=== PATIENT | female | born 1950 | race Caucasian/White ===

== ENCOUNTER 2020-08-29 16:44 | Emergency (ER) | payer MEDICARE, SELFPAY ==
--- NOTE | ~2020-08-29 | XR_ITS ---
XR forearm LT 2V DATE: 08/29/2020 17:07 INDICATION: Dog bite. Open laceration of the anterior forearm TECHNIQUE: AP and lateral views COMPARISON: None FINDINGS: Soft tissue puncture wounds are evident at the mid aspect of the anterior left forearm. No radiopaque foreign body. No fracture or dislocation of the forearm. No periosteal reaction or bone destruction. IMPRESSION: Soft tissue puncture wounds of anterior mid forearm; no fracture or dislocation or radiop aque foreign body Reviewed, dictated and finalized at location A. IMPRESSION: Soft tissue puncture wounds of anterior mid forearm; no fracture or dislocation or radiopaque foreign body
[2020-08-29 16:44] VITALS: BP 159/108; PULSE 74; RESP 20; TEMP 36.8; O2SAT 99
--- NOTE | 2020-08-29 16:54 | ED.GENADULT ---
HPI - General Adult General Chief complaint: Wound/Laceration Stated complaint: DOGBITE Source: patient, family and EMS Mode of arrival: EMS Limitations: no limitations History of Present Illness HPI narrative: Patient is a 69-year-old female who presents with a left forearm laceration that occurred from a dog bite left mid forearm pain from where a dog bit her while walking on a trail the owners had the dog's leash and as she walked past was bit patient presents in no distress per EMS patient is unsure as to tetanus status patient on arrival in no distress denies any other complaints pain is a moderate aching pain with any activity or movement Related Data Allergies Allergy/AdvReac Type Severity Reaction Status Date / Time No Known Allergies Allergy Unknown Verified 08/29/20 16:51 Review of Systems Review of Systems: All systems reviewed & are unremarkable except as noted in HPI and below PMFSH Past Medical History Medical History (Updated 08/29/20 @ 16:56 by Jose Teresa PA-C) Obese Social History Social History (Updated 08/29/20 @ 16:55 by Jose Teresa PA-C) Smoking status: Never smoker Exam Narrative: Exam Narrative: GENERAL: Well-appearing, well-nourished, and in no acute distress. HEAD: Normocephalic, atraumatic. EYES: PERRLA and EOMI. ENT: Nares clear, no rhinorrhea or epistaxis. Mucous membranes moist. CHEST: Clear to auscultation. No respiratory distress. No wheezes rales or rhonchi HEART: Regular rate and rhythm. No murmur heard. Normal peripheral pulses. EXTREMITIES: Normal range of motion. No edema. 2-1/2 cm linear laceration left mid forearm that is gaping. SKIN: Warm, dry, no rash. NEURO: No focal deficits. Alert and oriented x3. Neurovascularly intact. Capillary refill less than 2 seconds PSYCH: Normal mood and affect. Course Course Emergency Course: Patient's wound repaired in the emergency department no high risk changes in the imaging neurovascularly intact will follow up with primary care for reevaluation given reasons to return tetanus updated Vital Signs Vital signs: Vital Signs Temperature 98.2 F 08/29/20 16:44 Pulse Rate 74 08/29/20 16:44 Respiratory Rate 20 08/29/20 16:44 Blood Pressure 159/108 H 08/29/20 16:44 Pulse Oximetry 99 03/20/21 16:44 Temperature 98.2 F 08/29/20 16:44 Pulse Rate 74 08/29/20 16:44 Respiratory Rate 20 08/29/20 16:44 Blood Pressure 159/108 H 08/29/20 16:44 Pulse Oximetry 99 08/29/20 16:44 Procedures Laceration Laceration 1: Date: 08/29/20 Time: 18:55 Site: upper extremity Side (If applicable): left Size (cm): 2.5 Description: linear Depth: simple, single layer Local Anesthetic: lidocaine 1% Pre-repair: wound explored, irrigated and irrigated extensively ====== Skin Level ====== Skin layer closed with: nylon Size (cm): 4-0 Number of sutures: 4 ====== Subcutaneous Layer ====== ====== Muscle Layer ====== ====== Tendon Layer ====== Dressing: Patient's wound was irrigated with pressure irrigation closed with 4-0 nylon left loosely approximated in case there is infection or swelling neurovascularly intact pre and post procedure will follow with primary care for further evaluation tetanus updated nonadhesive antibiotic ointment 4 x 4 and Coban placed post procedure Medical Decision Making MDM Narrative Medical decision making narrative: Patients injury or pain is consistent with musculoskeletal etiology. No signs of neurological or vascular compromise on exam. Compartments and tisues are soft without signs of compartment syndrome. Pain is felt appropriate for further evaluation on an outpatient basis. Vital Signs Vital Signs: Vital Signs Temperature 98.2 F 08/29/20 16:44 Pulse Rate 74 08/29/20 16:44 Respiratory Rate 20 08/29/20 16:44 Blood Pressure 159/108 H 08/29/20 16:44 Pulse Oximetry
[2020-08-29] MEDS: HYDROcodone/acetaminophen (*CRX) 5-325 MG TABLET 1 TAB PO (16:55)
[2020-08-29] MEDS: TETANUS,DIPHTHERIA,AC PERTUSSIS ADULT (0.5 ML) BOOSTRIX IM (19:06)
[2020-08-29 19:12] VITALS: BP 160/102; PULSE 88; RESP 20; O2SAT 99
== END 2020-08-29 19:14 | disposition home or self-care (01) ==
PROVIDERS: Emergency Provider Emergency Medicine
DX: S51.852A Open bite of left forearm, initial encounter (principal); Z23 Encounter for immunization; E66.9 Obesity, unspecified; W54.0XXA Bitten by dog, initial encounter
CPT/HCPCS: 12001; 73090; 90471; 90715; 99283; A9270

== ENCOUNTER 2021-08-17 14:28 | Emergency (ER) | payer MEDICARE, SELFPAY ==
--- NOTE | ~2021-08-17 | XR_ITS ---
EXAMINATION: XR chest 2V DATE: 08/17/2021 19:00 INDICATION: One week of weakness and dizziness TECHNIQUE: PA and lateral views of the chest were obtained. COMPARISON: Chest radiograph dated 03/09/2019 FINDINGS: Mild eventration along the diaphragm. No focal airspace opacities, pulmonary edema, pleural effusion or pneumothorax. The cardiomediastinal silhouette is normal. Approximately 1 cm calcific density proj ecting over the region of the right kidney which could represent a renal stone, gallstone or potentia lly ingested material within the colon. Chronic mild anterior wedging of a few mid and lower thoracic vertebral bodies. IMPRESSION: 1. No acute cardiopulmonary disease. Reviewed, dictated and finalized at location A. M SHOVEL OILER
--- NOTE | ~2021-08-17 | CT_ITS ---
EXAMINATION: CT brain wo con DATE: 08/17/2021 19:45 INDICATION: Abnormal gait due to one week of dizziness TECHNIQUE: Computed tomography (CT) of the head was performed without intravenous contrast. Sagittal and coronal reconstructions were performed. The mA was adjusted according to patient size. Iterative reconstruction technique was employed. The dose-length product was 605.33 mGy-cm. COMPARISON: None FINDINGS: Small old lacunar infarct in the right frontal lobe rahman radiata. No acute intracranial hemorrhage, acute infarction or abnormal extra axial fluid collection. Ventricles are normal and symmetric. No m ass/mass effect. The orbits, paranasal sinuses and mastoid air cells are normal. IMPRESSION: 1. 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 No acute intracranial process. Reviewed, dictated and finalized at location A. IER CHECKER IMPRESSION: 1. 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 No acute i ntracranial process.
[2021-08-17 15:06] VITALS: BP 141/93; PULSE 71; RESP 16; O2SAT 100
[2021-08-17 17:15] VITALS: BP 149/97; PULSE 75; RESP 18; TEMP 36.4; O2SAT 99
--- NOTE | 2021-08-17 18:45 | PC.NURSE ---
pt to room 4 with c/o some vertigo over past week. noting with certain positions and turning of her head. symptoms resolve with rest. this am woke with feeling of lighthead and notice her gait is off and she is veering to the right. denies any weakness on one side or the other. pt denies any pain.
--- NOTE | 2021-08-17 18:53 | ECG_ITS ---
Measurements Intervals [place] Rate: 56 P: 5 FL: 162 QRS: -14 QRSD: 93 T: 2 QT: 390 QTc: 377 Interpretive Statements SINUS BRADYCARDIA MINIMAL VOLTAGE CRITERIA FOR LVH, CONSIDER NORMAL VARIANT [MEETS CRITERIA IN ONE OF: R(aVL), S(V1), R(V5), R(V5/V6)+S(V1)] BORDERLINE ECG COMPARED TO ECG 03/09/2019 12:51:38 SINUS BRADYCARDIA NOW PRESENT Electronically Signed On 08-18-2021 13:08:04 AIRCRAFT MAINTENANCE TECHNICIAN by Dalton Graham M.D.
[2021-08-17 19:01] LABS: Basophils Percent Auto 0.5 % (0.2-1.2); Eosinophils Absolute Auto 0.1 K/mm3 (0-0.3); Hematocrit 45.7 % (37.0-47.0); Hemoglobin 14.5 g/dL (12.0-15.0); Immature Granulocyte Absolute 0.02 K/mm3 (0.00-0.031); Immature Granulocyte Percent A 0.3 % (0-0.5); Lymphocytes Absolute Auto 1.54 K/mm3 (0.9-3.2); Lymphocytes Percent Auto 25.4 % (18.3-44.2); Mean Corpuscular HGB Conc 31.7 g/dl (32-36); Mean Corpuscular Hemoglobin 28.8 pg (26-34); Mean Corpuscular Volume 90.7 fl (80-100); Mean Platelet Volume 10.9 fl (7.4-10.4); Monocytes Absolute Auto 0.4 K/mm3 (0.1-0.6); Monocytes Percent Auto 7.3 % (2.6-8.5); Neutrophils Absolute Auto 3.9 K/mm3 (1.3-6.7); Neutrophils Percent Auto 64.5 % (45.5-73.1); Platelet Count Result 297 k/mm3 (150-375); Red Blood Count 5.04 M/mm3 (4.2-5.4); White Blood Count 6.1 K/mm3 (4.5-10.0)
[2021-08-17 19:13] LABS: Alanine Aminotransferase 21 U/L (4-35); Albumin Level 4.6 g/dL (3.5-5.1); Alkaline Phosphatase 62 U/L (38-126); Anion Gap 8 mmol/L (8-16); Aspartate Amino Transferase 31 U/L (14-36); Bilirubin,Total 0.3 mg/dL (0.2-1.3); Blood Urea Nitrogen 18 mg/dL (7-17); Calcium 9.3 mg/dL (8.4-10.2); Carbon Dioxide 26 mmol/L (22-30); Chloride 105 mmol/L (98-107); Estimated CRCL calculation 47 ml/min; Estimated Glomerular Filt Rate 49; Glucose 110 mg/dL (65-110); Potassium 3.8 mmol/L (3.4-5.0); Sodium 139 mmol/L (137-145)
--- NOTE | 2021-08-17 19:51 | ED.DIZZY ---
HPI - Dizziness General Chief Complaint: Dizziness Stated Complaint: dizziness Time Seen by Provider: 08/17/21 19:00 Source: patient and RN notes reviewed Mode of arrival: ambulatory Limitations: no limitations History of Present Illness HPI Narrative: This is a 70 year old female with history of prediabetes, hyperlipidemia, and chronic kidney disease who presents for evaluation of dizziness. Patient states over past week she has intermittent episodes of dizziness and vertigo. Approximately 1 week ago she had an episode of room spinning when she rolled over in bed. This happened 2 mornings in a row but she was fine during most of the day. She also reports noticing vertigo when she rolled over at the gym. She states today she is not having spinning but she feels dizziness that may be positional and intermittent. She denies headache, diplopia, chest pain, sob, nausea, vomiting, numbness, focal weakness or tingling. She thinks her gait is off intermittently. Related Data Allergies Allergy/AdvReac Type Severity Reaction Status Date / Time No Known Allergies Allergy Unknown Verified 08/29/20 16:51 Review of Systems Review of Systems: All systems reviewed & are unremarkable except as noted in HPI and below PMFSH Past Medical History Medical History (Updated 08/18/21 @ 00:00 by Quang Maya) Anxiety Chronic kidney disease Hyperlipidemia Hypothyroidism Obese Social History Social History (Updated 08/29/20 @ 16:55 by Jose Teresa PA-C) Smoking status: Never smoker Gender identity (if verbalized by the patient): Female Exam Const: General: no acute distress and alert Orientation/consciousness: patient oriented x3 HENMT: Head: normocephalic and atraumatic Ears: TM's normal bilaterally General nose exam: Normal external nose present Face and sinus: normal facial exam, sinuses nontender and face symmetric Mouth: Yes Normal oral and palatal mucosa present, Yes lip normal, Yes oropharynx normal and Yes moist mucous membranes Eyes: Pupils: Equal, round and reactive pupils present EOM: EOMs intact bilaterally Chest: Chest palpation & inspection: normal inspection of the chest Resp: Effort & Inspection: normal respiratory effort and no retractions Auscultation: clear to auscultation bilaterally Cardio: Rate: regular rate Rhythm: regular rhythm Heart sounds: no murmurs GI: GI Palp: Yes Soft to palpation, No Tenderness to palpation present (GI) and No Guarding due to palpation present (GI) Auscultation: normal bowel sounds Neuro: General: patient oriented x3, moves all extremities, no meningeal signs, no focal motor deficits and CN's II-XI intact bilaterally Cranial nerves: Yes CN's II-XII intact bilaterally Cognition (Neuro): normal cognition Speech: normal speech Gait exam (Neuro): Normal gait present Motor exam (neuro): 5/5 motor strength present throughout Sensory Exam: normal sensation Coordination: [id number] test normal, [id number] test normal, tandem gait normal and does not sway with eyes open Course Reevaluation(s) Reevaluation #1: I reviewed with patient and family CT and labs. Patient had normal gait in ER She is stable for discharge for outpatient follow up with PCP Date: 08/17/21 Time: 21:11 Vital Signs Vital signs: Vital Signs Pulse Rate 71 08/17/21 15:06 Respiratory Rate 16 08/17/21 15:06 Blood Pressure 141/93 H 08/17/21 15:06 Pulse Oximetry 100 08/17/21 15:06 Temperature 97.6 F 08/17/21 17:15 Pulse Rate 71 08/17/21 20:28 Respiratory Rate 18 08/17/21 17:15 Blood Pressure 132/89 08/17/21 20:28 Pulse Oximetry 99 08/17/21 17:15 MDM - Dizziness Medical Records Attestation: I reviewed the patient's medical records. Lab Data Attestation: I reviewed the patient's lab results. Result diagrams: 08/17/21 18:55 08/17/21 18:55 Labs: Lab Results 08/17/21 08/17/21 08/17/21 Range/Units 18:55 18:
[2021-08-17 20:25] VITALS: BP 140/86; PULSE 62
[2021-08-17 20:26] VITALS: BP 140/85; PULSE 69
[2021-08-17 20:28] VITALS: BP 132/89; PULSE 71
[2021-08-17 21:02] LABS: Add Urine Microscopic? NO; Appearance Urine Clear (Clear); Bilirubin Urine Negative (Negative); Blood Urine Negative (Negative); Color Urine Yellow (Yellow); Glucose Urine UA Negative (Negative); Ketones Urine Negative (Negative); Leukocyte Esterase Ur Negative LEU/UL (Negative); Nitrate Urine Negative (Negative); Protein Urine Negative (Negative); Specific Grav Ur 1.019 (1.001-1.035); Urobilinogen Urine Negative mg/dL (<2.0)
== END 2021-08-17 21:26 | disposition home or self-care (01) ==
PROVIDERS: Emergency Medicine; Emergency Provider General Practice
DX: R42 Dizziness and giddiness (principal); N18.9 Chronic kidney disease, unspecified; R73.03 Prediabetes; E78.5 Hyperlipidemia, unspecified; E03.9 Hypothyroidism, unspecified; E66.9 Obesity, unspecified; Z68.34 Body mass index [BMI] 34.0-34.9, adult; R00.1 Bradycardia, unspecified
CPT/HCPCS: 36415; 70450; 71046; 80053; 81003; 85025; 93005; 99284

== ENCOUNTER 2023-08-17 09:09 | Outpatient (CLI) | payer MEDICARE, SELFPAY ==
[2023-08-17 19:15] LABS: Parathyroid Intact 33.9 pg/mL (7.5-53.5)
[2023-08-17 19:21] LABS: Alanine Aminotransferase 25 U/L (6-35); Albumin Level 4.3 g/dL (3.5-5.1); Alkaline Phosphatase 73 U/L (38-126); Anion Gap 8 mmol/L (8-16); Aspartate Amino Transferase 49 U/L (14-36); Bilirubin,Total 0.7 mg/dL (0.2-1.3); Blood Urea Nitrogen 15 mg/dL (7-17); Calcium 9.7 mg/dL (8.4-10.2); Carbon Dioxide 25 mmol/L (22-30); Chloride 107 mmol/L (98-107); Cholesterol 152 mg/dL (0-200); Estimated Glomerular Filt Rate 55; Glucose 108 mg/dL (65-110); HDL Direct 46 mg/dL; Potassium 3.4 mmol/L (3.4-5.0); Sodium 140 mmol/L (137-145); Triglycerides 110 mg/dL (<150)
[2023-08-17 19:32] LABS: LDL Cholesterol Direct 81 mg/dL
[2023-08-17 19:34] LABS: Eosinophils Absolute Auto 0.3 K/mm3 (0-0.3); Eosinophils Percent Auto 7.7 % (0-4.4); Hematocrit 45.1 % (37.0-47.0); Hemoglobin 14.4 g/dL (12.0-15.0); Immature Granulocyte Absolute 0.01 K/mm3 (0.00-0.031); Immature Granulocyte Percent A 0.2 % (0-0.5); Lymphocytes Absolute Auto 1.18 K/mm3 (0.9-3.2); Lymphocytes Percent Auto 29.1 % (18.3-44.2); Mean Corpuscular HGB Conc 31.9 g/dl (32-36); Mean Corpuscular Volume 87.6 fl (80-100); Monocytes Absolute Auto 0.3 K/mm3 (0.1-0.6); Monocytes Percent Auto 8.4 % (2.6-8.5); Neutrophils Absolute Auto 2.2 K/mm3 (1.3-6.7); Neutrophils Percent Auto 53.6 % (45.5-73.1); Platelet Count Result 268 k/mm3 (150-375); Red Blood Count 5.15 M/mm3 (4.2-5.4); Red Cell Distribution Width 13.3 % (11.5-14.5); White Blood Count 4.1 K/mm3 (4.5-10.0)
[2023-08-17 20:11] LABS: Thyroid Stimulating Hormone 0.311 uIU/mL (0.465-4.680); Total Triiodothyronine (T3) 1.05 NG/ML (0.97-1.69)
[2023-08-17 20:32] LABS: Free T4 Free Thyroxine 1.54 ng/mL (0.78-2.19)
== END 2023-08-17 09:10 | disposition home or self-care (01) ==
LOC: ANHGOSHLAB 09:10
PROVIDERS: PCP Emergency Medicine; Visit Provider Emergency Medicine
DX: E78.5 Hyperlipidemia, unspecified (principal); E03.9 Hypothyroidism, unspecified; N18.31 Chronic kidney disease, stage 3a
CPT/HCPCS: 36415; 80053; 80061; 82330; 83970; 84439; 84443; 84480; 85025

== ENCOUNTER 2023-09-25 09:28 | Outpatient (CLI) | payer MEDICARE, SELFPAY ==
--- NOTE | ~2023-09-25 | XR_ITS ---
Left Shoulder Technique: AP and axillary views were obtained. Clinical History: Pain Findings: No fracture or dislocation is seen. Osseous alignment is anatomic. Moderate AC joint degene rative change present. Glenohumeral joint intact. Soft tissues are unremarkable. Impression: Moderate AC joint degenerative change. Reviewed, dictated and finalized at location . Impression: Moderate AC joint degenerative change.
== END 2023-09-25 09:29 ==
PROVIDERS: PCP Emergency Medicine; Visit Provider Emergency Medicine
DX: M19.012 Primary osteoarthritis, left shoulder (principal)
CPT/HCPCS: 73030

== ENCOUNTER 2023-09-27 10:00 | Outpatient (RCR) | payer MEDICARE, SELFPAY ==
--- NOTE | 2023-07-19 09:56 | OPREHPOC ---
Outpatient Therapy Plan of Care This is a Multidisciplinary Plan of Care that may contain components documented by all disciplines (PT, OT, and ST.) PT Problem 1 PT Problem #1 Knowledge Deficit PT Goal 1 Goal 1. Patient will perform independent HEP Target Visit 4 PT Problem 2 PT Problem #2 Pain PT Goal 1 Goal 1. Patient able to reach into cabinets with shoulder pain no higher than 2/10 2. Patient able to navigate all stairs at her apartment with LE pain no higher than 1/10 Target Visit 8 PT Problem 3 PT Problem #3 Impaired Strength PT Goal 1 Goal 1. Improve hip abduction to 4+/5 bilateral for gait and stair navigation 2. Improve left shoulder to 4+/5 in all planes for reaching activities Target Visit 8
--- NOTE | 2023-07-19 10:42 | PTOPPROG ---
Assessment and note entered by Yanelis Pickett DPT Evaluation Information Assessment Status Evaluation Subjective Information Pt reports radiating low back pain and left shoulder pain. LBP has been about 6-8 months. Pain starts in her R buttock and radiates down the side of her right LE. Highest LE pain 5/10 and lowest 0/10. Denies n/t. Pain increases with navigating stairs or prolonged walking. Does try to avoid walking at times due to the pain. 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 Independent with dressing, bathing, and cooking. Has 3 stairs to get in to her apartment and stairs to basement laundry. Pain also causes her to wake up in the middle of the night. Shoulder pain with reaching overhead like in to a cabinet, laying on her left side, reaching behind her back. Pain started about a year ago. Highest pain 6/10 and lowest 0/10. Denies n/t. Generally avoiding using her L UE for activities. Pt is R hand dominant. Returns to MD on 08/17/23. Patient goal: get rid of the pain, get more motion in her shoulder Assessment PT Clinical Summary The patient is presenting to skilled therapy with a history of radiating R LBP and L shoulder pain. She presents with decreased UE strength and motion , and decreased LE strength and flexibility impairments. These impairments are contributing to her pain and difficulty with reaching overhead and navigating stairs. She will highly benefit from therapy to address these impairments in order to safely return to full function. Plan of Care Interventions Electrical Stimulation,Gait Training,Hot Pack/Cold Pack,Manual Therapy,Neuro Re-education,Patient/ Caregiver Education,Therapeutic Activities, Therapeutic Exercise PT Services Indicated Yes Treatment Frequency and 2 times a week for 8 visits Duration These treatments will address the objective and functional deficits as defined above. The patient will be advanced safely and appropriately in order for the patient to progress towards his/her prior level of function. Additional exercises will be introduced and as well as a comprehensive home exercise program upon discharge, if needed, ?to ensure carryover of functional gains achieved in the clinic. This treatment plan has been reviewed and agreement upon by the patient.
--- NOTE | 2023-08-16 09:50 | OPREHPOC ---
Outpatient Therapy Plan of Care This is a Multidisciplinary Plan of Care that may contain components documented by all disciplines (PT, OT, and ST.) PT Problem 1 PT Problem #1 Knowledge Deficit PT Goal 1 Goal 1. Patient will perform independent HEP Target Visit 4 Progress Met PT Problem 2 PT Problem #2 Pain PT Goal 1 Goal 1. Patient able to reach into cabinets with shoulder pain no higher than 2/10 2. Patient able to navigate all stairs at her apartment with LE pain no higher than 1/10 Target Visit 8 Progress Partially Met PT Problem 3 PT Problem #3 Impaired Strength PT Goal 1 Goal 1. Improve hip abduction to 4+/5 bilateral for gait and stair navigation 2. Improve left shoulder to 4+/5 in all planes for reaching activities Target Visit 8 Progress Partially Met
--- NOTE | 2023-08-16 09:50 | PTOPPROG ---
Assessment and note entered by Yanelis Pickett DPT Evaluation Information Assessment Status Progress Subjective Information Highest back/leg pain in the last week 310 and lowest 0/10. Not noticing pain in her leg as much. Highest shoulder pain in the last week 10 and lowest 0/10. Feels things are getting better with therapy, can lift her arm higher like to reach into cabinets. Also less pain with rolling on to her shoulder in bed. Assessment PT Clinical Summary The patient has made good progress in therapy and reports overall decreased back/LE pain and decreased shoulder pain. She demonstrates some shoulder ROM improvements and UE/LE strength improvements. She also demonstrates improved gait speed and stair navigation. Due to her progress but continued pain with ADL's, she will benefit from continued therapy to safely reduce pain and improve function. Plan of Care Interventions Electrical Stimulation,Gait Training,Hot Pack/Cold Pack,Neuro Re-education,Patient/Caregiver Education ,Therapeutic Activities,Therapeutic Exercise PT Services Indicated Yes Treatment Frequency and 1-2 times a week for 4-8 visits Duration These treatments will address the objective and functional deficits as defined above. The patient will be advanced safely and appropriately in order for the patient to progress towards his/her prior level of function. Additional exercises will be introduced and as well as a comprehensive home exercise program upon discharge, if needed, ?to ensure carryover of functional gains achieved in the clinic. This treatment plan has been reviewed and agreement upon by the patient.
--- NOTE | 2023-09-05 09:31 | PCPTNOTE ---
Patient called to cancel due to illness.
--- NOTE | 2023-09-27 10:35 | OPREHPOC ---
Outpatient Therapy Plan of Care This is a Multidisciplinary Plan of Care that may contain components documented by all disciplines (PT, OT, and ST.) PT Problem 1 PT Problem #1 Knowledge Deficit PT Goal 1 Goal 1. Patient will perform independent HEP Target Visit 4 Progress Met PT Problem 2 PT Problem #2 Pain PT Goal 1 Goal 1. Patient able to reach into cabinets with shoulder pain no higher than 2/10 2. Patient able to navigate all stairs at her apartment with LE pain no higher than 1/10 Target Visit 8 Progress Met PT Problem 3 PT Problem #3 Impaired Strength PT Goal 1 Goal 1. Improve hip abduction to 4+/5 bilateral for gait and stair navigation 2. Improve left shoulder to 4+/5 in all planes for reaching activities Target Visit 8 Progress Met
--- NOTE | 2023-09-27 10:35 | PTOPDC ---
Assessment and note entered by Yanelis Pickett DPT Evaluation Information Assessment Status Discharge Subjective Information Pt reports her shoulder is feeling much better, she is having less pain and laying on it more. Highest shoulder pain 2/10 in the last week and lowest 0/10. Back/leg pain highest 4/10 and lowest 0/10. Overall has been feeling pretty good and has been able to do activities at home. Reported Pain Level Pain Score 0: Self Report Assessment PT Clinical Summary The patient has made excellent progress in therapy . She reports greatly decreased pain overall and is able to do all ADL's. She demonstrates improved upper and lower extremity strength as well as improved shoulder range of motion and improved stair pattern. Due to her progress, plan to discharge at this time. She has been educated in a thorough HEP and to follow up with MD and/or PT as needed. Plan of Care PT Services Indicated No
== END 2023-09-27 11:22 | disposition home or self-care (01) ==
LOC: ANHGOSHPT 10:00
PROVIDERS: Visit Provider Emergency Medicine
DX: M54.31 Sciatica, right side (principal); M12.812 Other specific arthropathies, not elsewhere classified, left shoulder
CPT/HCPCS: 97110; 97112; 97140; 97161; 97530

== ENCOUNTER 2024-01-25 13:49 | Outpatient (CLI) | payer MEDICARE, SELFPAY ==
--- NOTE | ~2024-01-25 | MM_ITS ---
EXAMINATION: MM screening [facility] w [facility] HISTORY: Screening TECHNIQUE: Craniocaudal and mediolateral oblique 3-D tomosynthesis images were obtained and synthetic 2-D images were generated. CAD analysis was submitted and interpreted. COMPARISON: Comparison to multiple prior studies sequentially, with oldest reviewed study dated 05/12. BREAST PARENCHYMAL COMPOSITION: Not Dense: The breasts are almost entirely fatty. FINDINGS: There is no evidence of suspicious mass, calcification, or architectural distortion to sugg est malignancy in either breast. There has been no suspicious interval change. IMPRESSION: 1. No mammographic evidence of malignancy. 2. Recommend routine screening mammography in one year. BI-RADS Category 1: Negative Reviewed, dictated and finalized at location B.
== END 2024-01-25 13:50 ==
LOC: MICIMG 13:49
PROVIDERS: PCP Emergency Medicine; Visit Provider Emergency Medicine
DX: Z12.31 Encounter for screening mammogram for malignant neoplasm of breast (principal)
CPT/HCPCS: 77063; 77067

== ENCOUNTER 2025-01-28 10:30 | Outpatient (CLI) | payer MEDICARE, SELFPAY ==
--- NOTE | ~2025-01-28 | MM_ITS ---
EXAMINATION: MM screening [facility] BI w kerrie HISTORY: Screening mammogram TECHNIQUE: Craniocaudal and mediolateral oblique 3-D tomosynthesis images were obtained and synthetic 2-D images were generated. CAD analysis was submitted and interpreted. COMPARISON: 01/25/2024, 09/21/2022, 07/28/2021 BREAST PARENCHYMAL COMPOSITION:Not Dense. There are scattered areas of fibroglandular density. FINDINGS: No suspicious mass, calcification, or architectural distortion are identified in either breast to suggest malignancy. There has been no suspicious interval change. IMPRESSION: No mammographic evidence of malignancy. Recommend routine screening mammography in one year. BI-RADS Category 1: Negative Reviewed, dictated and finalized at location .
== END 2025-01-28 10:31 | disposition home or self-care (01) ==
LOC: MICIMG 10:32
PROVIDERS: PCP Family Medicine; Visit Provider Family Medicine
DX: Z12.31 Encounter for screening mammogram for malignant neoplasm of breast (principal)
CPT/HCPCS: 77063; 77067